=== PATIENT | female | born 1995 | race Two or more races ===

== ENCOUNTER 2021-05-16 14:51 | Emergency (ER) | payer OTHER ==
[~2021-05-16] VITALS: Ht 165.1 cm; Wt 81.6 kg
[2021-05-16] MEDS ORDERED: IBUPROFEN 800 MG TAB PO ONE (18:00)
[2021-05-16 18:06] VITALS: BP 115/83
== END 2021-05-16 18:37 | disposition home or self-care (01) ==
LOC: ER 14:51
DX: S52.502A Unspecified fracture of the lower end of left radius, initial encounter for closed fracture (principal); W18.39XA Other fall on same level, initial encounter; Y93.89 Activity, other specified; Y92.89 Other specified places as the place of occurrence of the external cause; Y99.0 Civilian activity done for income or pay
CPT/HCPCS: 29125; 73110